=== PATIENT | male | born 1950 | race Caucasian/White ===

== ENCOUNTER 2021-09-05 16:41 | Inpatient (IN) | payer MEDICARE, OTHER ==
[~2021-09-05] VITALS: Ht 182.9 cm; Wt 85.7 kg
[2021-09-05 19:04] LABS: BASOPHILS % (AUTO) 0.2 % (0.0-2.0); EOSINOPHILS % (AUTO) 0.1 % (0.0-6.0); HEMATOCRIT 35 % (39-51); HEMOGLOBIN 11.7 g/dL (13.5-17.5); LYMPHOCYTES # (AUTO) 0.3 K/uL (0.8-4.8); LYMPHOCYTES % (AUTO) 5.5 % (20.0-44.0); MEAN CORPUSCULAR HGB CONC 33 g/dl (31.0-36.0); MEAN CORPUSCULAR VOLUME 98 fL (80-96); MONOCYTES # (AUTO) 0.5 K/uL (0.1-1.30); MONOCYTES % (AUTO) 8.8 % (2.0-12.0); NEUTROPHILS % (AUTO) 85.4 % (43.0-81.0); PLATELET COUNT (AUTO) 179 K/uL (150-450); RED BLOOD CELL COUNT(AUTO) 3.57 MIL/uL (4.5-6.0); WHITE BLOOD COUNT (AUTO) 5.9 K/uL (4.3-11.0)
[2021-09-05 19:22] LABS: CALCIUM, SERUM 9.2 mg/dL (8.5-10.1); CARBON DIOXIDE 36 mmol/L (21-32); CHLORIDE 94 mmol/L (98-107); CREATININE 5.8 mg/dL (0.6-1.3); GLUCOSE 122 mg/dL (74-106); POTASSIUM 4.3 mmol/L (3.5-5.1); SODIUM SERUM 136 mmol/L (136-145); UREA NITROGEN, BLOOD 36 mg/dL (7-18)
[2021-09-05 19:37] LABS: ALANINE AMINOTRANSFERASE 26 U/L (12-78); ALBUMIN 3.3 g/dL (3.4-5.0); ALKALINE PHOSPHATASE 68 U/L (46-116); ASPARTATE AMINOTRANSFERASE 27 U/L (15-37); BILIRUBIN,DIRECT 0.1 mg/dL (0.0-0.2); BILIRUBIN,TOTAL 0.4 mg/dL (0.2-1.0); TOTAL PROTEIN, SERUM 7.4 g/dL (6.4-8.2)
[2021-09-05] MEDS ORDERED: ASPIRIN 325 MG TABLET PO ONE (21:30)
[2021-09-05] MEDS ORDERED: IV NS 0.9% 250 ML BAG IV ONE (21:30)
[2021-09-05] MEDS ORDERED: CEFTRIAXONE 1 G in IV D5W 50 ML IV ONE (21:30)
[2021-09-05] MEDS ORDERED: ACETAMINOPHEN 325 MG TABLET PO ONE (21:30)
[2021-09-05] MEDS ORDERED: VANCOMYCIN HCL 1.25 GM in IV D5W 260 ML IV ONE (21:30)
[2021-09-05] MEDS ORDERED: CEFTRIAXONE 1GM BAG (ER ONLY) 50 ML IV ONE (22:10)
[2021-09-05] MEDS ORDERED: ACETAMINOPHEN 325 MG TABLET ONE (22:13)
[2021-09-05] MEDS ORDERED: ASPIRIN 325 MG TABLET ONE (22:13)
[2021-09-05] MEDS ORDERED: VANCOMYCIN 1 GM VIAL ONE (22:32)
[2021-09-05] MEDS ORDERED: VANCOMYCIN 500 MG VIAL ONE (22:34)
[2021-09-05] MEDS ORDERED: ONDANSETRON HCL/PF 4 MG/2 ML VIAL IVP PRN (23:00)
[2021-09-05] MEDS ORDERED: ACETAMINOPHEN 325 MG TABLET PO PRN (23:00)
[2021-09-05] MEDS ORDERED: Z GUARD REMEDY 2 OZ OINT TP PRN (23:00)
[2021-09-06 02:43] LABS: BILIRUBIN,URINE NEGATIVE (NEGATIVE); COLOR,URINE YELLOW (YELLOW); LEUKOCYTE ESTERASE ,URINE NEGATIVE (NEGATIVE); NITRITE, URINE NEGATIVE (NEGATIVE); PH,URINE 8.5 (5.0-8.0); PROTEIN,URINE 30 mg/dl (NEGATIVE); UGLUCOSE 250 MG/DL mg/dL (NEGATIVE); UROBILINOGEN,URINE 0.2 EU/dL (0.2)
[2021-09-06] MEDS ORDERED: ZOSYN IVPB 3.375 G in IV D5W 50ml IV ONE (05:00)
[2021-09-06 05:27] LABS: BASOPHILS % (AUTO) 0.8 % (0.0-2.0); EOSINOPHILS % (AUTO) 1.2 % (0.0-6.0); HEMATOCRIT 31 % (39-51); HEMOGLOBIN 10.6 g/dL (13.5-17.5); LYMPHOCYTES # (AUTO) 0.7 K/uL (0.8-4.8); LYMPHOCYTES % (AUTO) 18.5 % (20.0-44.0); MEAN CORPUSCULAR HGB CONC 34 g/dl (31.0-36.0); MEAN CORPUSCULAR VOLUME 99 fL (80-96); MONOCYTES # (AUTO) 0.3 K/uL (0.1-1.30); MONOCYTES % (AUTO) 8.9 % (2.0-12.0); NEUTROPHILS # (AUTO) 2.5 K/uL (1.8-8.9); NEUTROPHILS % (AUTO) 70.6 % (43.0-81.0); PLATELET COUNT (AUTO) 142 K/uL (150-450); RED BLOOD CELL COUNT(AUTO) 3.17 MIL/uL (4.5-6.0); WHITE BLOOD COUNT (AUTO) 3.5 K/uL (4.3-11.0)
[2021-09-06 05:33] LABS: ALANINE AMINOTRANSFERASE 19 U/L (12-78); ALKALINE PHOSPHATASE 63 U/L (46-116); ASPARTATE AMINOTRANSFERASE 25 U/L (15-37); BILIRUBIN,TOTAL 0.4 mg/dL (0.2-1.0); CARBON DIOXIDE 34 mmol/L (21-32); CHLORIDE 95 mmol/L (98-107); CREATININE 6.9 mg/dL (0.6-1.3); GLUCOSE 100 mg/dL (74-106); MAGNESIUM 2.3 mg/dL (1.8-2.4); POTASSIUM 4.4 mmol/L (3.5-5.1); SODIUM SERUM 136 mmol/L (136-145); TOTAL PROTEIN, SERUM 6.7 g/dL (6.4-8.2); UREA NITROGEN, BLOOD 47 mg/dL (7-18)
[2021-09-06] MEDS ORDERED: PIPERACILLIN /TAZOBACTAM 3.375 G VIAL IV ONE (05:41)
[2021-09-06 05:53] LABS: CHOLESTEROL 181 mg/dL (<200); HDL CHOLESTEROL 49 mg/dL (40-60); LDL 98 mg/dL (0-99); TRIGLYCERIDES 103 mg/dL (30-150)
[2021-09-06] MEDS ORDERED: VANCOMYCIN 500 MG in IV D5W 100 ML IV PRN (07:00)
[2021-09-06] MEDS ORDERED: EPOE1VIA6 SQ (08:15)
[2021-09-06] MEDS ORDERED: FINA5TAB11 PO (08:15)
[2021-09-06] MEDS ORDERED: CARV3.12 PO (08:15)
[2021-09-06] MEDS ORDERED: ACET-868 PO (08:15)
[2021-09-06] MEDS ORDERED: TAMS-12 PO (08:15)
[2021-09-06] MEDS ORDERED: CALC667C6 PO (08:15)
[2021-09-06] MEDS ORDERED: AMLO-212 PO (08:15)
[2021-09-06] MEDS ORDERED: DOCU-141 PO (08:15)
[2021-09-06] MEDS ORDERED: FOLI0.8T23 PO (08:15)
[2021-09-06] MEDS ORDERED: NITR0.4T48 SL (08:15)
[2021-09-06] MEDS ORDERED: ASPI-1169 PO (08:15)
[2021-09-06] MEDS ORDERED: GABA-532 PO (08:15)
[2021-09-06] MEDS ORDERED: AMIO200T5 PO (08:15)
[2021-09-06] MEDS ORDERED: ASPIRIN EC 325 MG TABLET.DR PO SCH (09:00)
[2021-09-06] MEDS ORDERED: ASPIRIN EC 325 MG TABLET.DR PO ONE (09:11)
[2021-09-06] MEDS: PIPERACILLIN /TAZOBACTAM 2.25 G in IV D5W 50 ML IV SCH ×3 (12:07→23:03)
[2021-09-06] MEDS: ASPIRIN 81 MG TAB.CHEW PO SCH (16:57)
[2021-09-06] MEDS ORDERED: AMIODARONE HCL 200 MG TABLET ONE (16:59)
[2021-09-06] MEDS: AMIODARONE HCL 200 MG TABLET PO SCH (17:00)
[2021-09-06] MEDS ORDERED: CARVEDILOL 3.125 MG TABLET ONE (17:49)
[2021-09-06] MEDS ORDERED: AMLODIPINE BESYLATE 5 MG TABLET ONE (17:49)
[2021-09-06] MEDS: AMLODIPINE BESYLATE 5 MG TABLET PO SCH (17:50)
[2021-09-06] MEDS: CARVEDILOL 3.125 MG TABLET PO SCH (17:50)
[2021-09-06] MEDS ORDERED: HEPARIN INFUSION/D5W 500 ML IV ONE (18:05)
[2021-09-06] MEDS: HEPARIN INFUSION/D5W 500 ML IV PRN (18:06)
[2021-09-06 20:00] VITALS: BP 144/78
[2021-09-07] VITALS: BP 114/48
[2021-09-07] MEDS ORDERED: HEPARIN SODIUM, PORCINE 5000 UNITS/1 ML VIAL IV ONE (02:00)
[2021-09-07 05:00] VITALS: BP 136/67
[2021-09-07] MEDS: PIPERACILLIN /TAZOBACTAM 2.25 G in IV D5W 50 ML IV SCH ×4 (05:45→23:56)
[2021-09-07 06:31] LABS: EOSINOPHILS % (AUTO) 7.8 % (0.0-6.0); HEMATOCRIT 30 % (39-51); HEMOGLOBIN 10.1 g/dL (13.5-17.5); LYMPHOCYTES # (AUTO) 0.8 K/uL (0.8-4.8); MEAN CORPUSCULAR HGB CONC 34 g/dl (31.0-36.0); MEAN CORPUSCULAR VOLUME 99 fL (80-96); MONOCYTES # (AUTO) 0.5 K/uL (0.1-1.30); MONOCYTES % (AUTO) 13.7 % (2.0-12.0); NEUTROPHILS # (AUTO) 2.2 K/uL (1.8-8.9); NEUTROPHILS % (AUTO) 56.5 % (43.0-81.0); PLATELET COUNT (AUTO) 138 K/uL (150-450); RED BLOOD CELL COUNT(AUTO) 3.01 MIL/uL (4.5-6.0); WHITE BLOOD COUNT (AUTO) 3.9 K/uL (4.3-11.0)
[2021-09-07 06:46] LABS: ALANINE AMINOTRANSFERASE 29 U/L (12-78); ALBUMIN 2.8 g/dL (3.4-5.0); ALKALINE PHOSPHATASE 54 U/L (46-116); ASPARTATE AMINOTRANSFERASE 27 U/L (15-37); BILIRUBIN,TOTAL 0.4 mg/dL (0.2-1.0); CALCIUM, SERUM 8.4 mg/dL (8.5-10.1); CARBON DIOXIDE 31 mmol/L (21-32); CHLORIDE 94 mmol/L (98-107); GLUCOSE 96 mg/dL (74-106); MAGNESIUM 2.5 mg/dL (1.8-2.4); PHOSPHORUS 5.6 mg/dL (2.5-4.9); POTASSIUM 4.6 mmol/L (3.5-5.1); SODIUM SERUM 136 mmol/L (136-145); TOTAL PROTEIN, SERUM 6.3 g/dL (6.4-8.2); UREA NITROGEN, BLOOD 65 mg/dL (7-18)
[2021-09-07 06:52] LABS: CREATININE 9.3 mg/dL (0.6-1.3)
[2021-09-07 08:00] VITALS: BP 125/58
[2021-09-07] MEDS: CARVEDILOL 3.125 MG TABLET PO SCH (08:57)
[2021-09-07] MEDS: AMIODARONE HCL 200 MG TABLET PO SCH (08:57)
[2021-09-07] MEDS: ASPIRIN 81 MG TAB.CHEW PO SCH (08:58)
[2021-09-07] MEDS: AMLODIPINE BESYLATE 5 MG TABLET PO SCH (08:58)
[2021-09-07 12:00] VITALS: BP 132/59
[2021-09-07] MEDS: METOPROLOL TARTRATE 50 MG TABLET PO SCH ×4 (12:02→23:59)
[2021-09-07] MEDS: HEPARIN INFUSION/D5W 500 ML IV PRN (13:22)
[2021-09-07 16:00] VITALS: BP 109/52
[2021-09-07 20:00] VITALS: BP 137/69
[2021-09-08] VITALS: BP 125/67
[2021-09-08 04:00] VITALS: BP 134/73
[2021-09-08] MEDS: PIPERACILLIN /TAZOBACTAM 2.25 G in IV D5W 50 ML IV SCH ×2 (05:24→12:29)
[2021-09-08] MEDS: METOPROLOL TARTRATE 50 MG TABLET PO SCH ×3 (05:25→18:00)
[2021-09-08 06:51] LABS: BASOPHILS % (AUTO) 0.3 % (0.0-2.0); EOSINOPHILS % (AUTO) 8.6 % (0.0-6.0); HEMATOCRIT 29 % (39-51); LYMPHOCYTES # (AUTO) 1.4 K/uL (0.8-4.8); MEAN CORPUSCULAR HGB CONC 35 g/dl (31.0-36.0); MEAN CORPUSCULAR VOLUME 97 fL (80-96); MONOCYTES # (AUTO) 0.6 K/uL (0.1-1.30); MONOCYTES % (AUTO) 12.2 % (2.0-12.0); NEUTROPHILS # (AUTO) 2.6 K/uL (1.8-8.9); NEUTROPHILS % (AUTO) 51.9 % (43.0-81.0); PLATELET COUNT (AUTO) 146 K/uL (150-450); RED BLOOD CELL COUNT(AUTO) 2.95 MIL/uL (4.5-6.0)
[2021-09-08 07:41] LABS: ALANINE AMINOTRANSFERASE 24 U/L (12-78); ALBUMIN 2.8 g/dL (3.4-5.0); ALKALINE PHOSPHATASE 50 U/L (46-116); ASPARTATE AMINOTRANSFERASE 24 U/L (15-37); BILIRUBIN,TOTAL 0.4 mg/dL (0.2-1.0); CALCIUM, SERUM 8.2 mg/dL (8.5-10.1); CARBON DIOXIDE 30 mmol/L (21-32); CHLORIDE 93 mmol/L (98-107); GLUCOSE 97 mg/dL (74-106); MAGNESIUM 2.6 mg/dL (1.8-2.4); PHOSPHORUS 6.9 mg/dL (2.5-4.9); POTASSIUM 4.9 mmol/L (3.5-5.1); SODIUM SERUM 135 mmol/L (136-145); TOTAL PROTEIN, SERUM 6.5 g/dL (6.4-8.2); UREA NITROGEN, BLOOD 76 mg/dL (7-18)
[2021-09-08 07:44] LABS: CREATININE 11.2 mg/dL (0.6-1.3)
[2021-09-08 08:00] VITALS: BP 124/61
[2021-09-08] MEDS ORDERED: NEPRO VAN 237 ML CAN PO PRN (09:00)
[2021-09-08] MEDS: AMIODARONE HCL 200 MG TABLET PO SCH (09:50)
[2021-09-08] MEDS: ASPIRIN 81 MG TAB.CHEW PO SCH (09:50)
[2021-09-08] MEDS: AMLODIPINE BESYLATE 5 MG TABLET PO SCH (09:50)
[2021-09-08 12:00] VITALS: BP 129/66
[2021-09-08 16:00] VITALS: BP 137/57
[2021-09-08] MEDS ORDERED: IV NS 0.9% 250 ML IV ONE (16:38)
[2021-09-08] MEDS ORDERED: IOHEXOL-350 100 ML VIAL IV ONE (16:38)
[2021-09-08] MEDS ORDERED: NITROGLYCERIN 0.4 MG/TAB BOTTLE ONE (17:07)
[2021-09-08] MEDS ORDERED: NITROGLYCERIN 0.4 MG/TAB BOTTLE SL ONE (17:30)
[2021-09-08] MEDS ORDERED: METOPROLOL TARTRATE INJ 5 MG/5 ML AMPUL IVP PRN (17:30)
[2021-09-08 20:00] VITALS: BP 127/62
[2021-09-09] VITALS (7 sets, daily range): BP systolic 144–157; BP diastolic 56–85
[2021-09-09] MEDS: METOPROLOL TARTRATE 50 MG TABLET PO SCH ×5 (00:24→23:58)
[2021-09-09] MEDS: AMLODIPINE BESYLATE 5 MG TABLET PO SCH (08:38)
[2021-09-09] MEDS: ASPIRIN 81 MG TAB.CHEW PO SCH (08:38)
[2021-09-09] MEDS: SEVELAMER CARBONATE 800 MG TABLET PO SCH ×3 (08:38→17:29)
[2021-09-09] MEDS: AMIODARONE HCL 200 MG TABLET PO SCH (08:39)
[2021-09-10] VITALS (8 sets, daily range): BP systolic 124–149; BP diastolic 49–68
[2021-09-10] MEDS: METOPROLOL TARTRATE 50 MG TABLET PO SCH ×3 (05:12→17:27)
[2021-09-10 07:00] LABS: BASOPHILS % (AUTO) 0.7 % (0.0-2.0); EOSINOPHILS % (AUTO) 5.8 % (0.0-6.0); HEMATOCRIT 29 % (39-51); LYMPHOCYTES # (AUTO) 1.6 K/uL (0.8-4.8); LYMPHOCYTES % (AUTO) 26.3 % (20.0-44.0); MEAN CORPUSCULAR HGB CONC 34 g/dl (31.0-36.0); MEAN CORPUSCULAR VOLUME 98 fL (80-96); MONOCYTES # (AUTO) 0.8 K/uL (0.1-1.30); MONOCYTES % (AUTO) 13.1 % (2.0-12.0); NEUTROPHILS # (AUTO) 3.3 K/uL (1.8-8.9); NEUTROPHILS % (AUTO) 54.1 % (43.0-81.0); PLATELET COUNT (AUTO) 168 K/uL (150-450); RED BLOOD CELL COUNT(AUTO) 2.96 MIL/uL (4.5-6.0); WHITE BLOOD COUNT (AUTO) 6.2 K/uL (4.3-11.0)
[2021-09-10 07:36] LABS: CALCIUM, SERUM 8.2 mg/dL (8.5-10.1); CARBON DIOXIDE 24 mmol/L (21-32); CHLORIDE 98 mmol/L (98-107); GLUCOSE 95 mg/dL (74-106); MAGNESIUM 2.6 mg/dL (1.8-2.4); PHOSPHORUS 7.9 mg/dL (2.5-4.9); POTASSIUM 4.5 mmol/L (3.5-5.1); SODIUM SERUM 140 mmol/L (136-145); UREA NITROGEN, BLOOD 77 mg/dL (7-18)
[2021-09-10 07:43] LABS: CREATININE 11.3 mg/dL (0.6-1.3)
[2021-09-10] MEDS: SEVELAMER CARBONATE 800 MG TABLET PO SCH ×3 (08:40→17:27)
[2021-09-10] MEDS: ASPIRIN 81 MG TAB.CHEW PO SCH (08:40)
[2021-09-10] MEDS: AMIODARONE HCL 200 MG TABLET PO SCH (08:41)
[2021-09-10] MEDS: AMLODIPINE BESYLATE 5 MG TABLET PO SCH (08:41)
[2021-09-10] MEDS ORDERED: LIDOCAINE HCL/PF 1% 30 ML SDV ONE (12:51)
[2021-09-10] MEDS ORDERED: IV NS 0.9% 1,000 ML ONE (12:51)
[2021-09-10] MEDS ORDERED: NITROGLYCERIN IN 5 % DEXTROSE 250 ML IV ONE (12:51)
[2021-09-10] MEDS ORDERED: IV SET PRIMARY PUMP SET 1 EA INFUS.SET MC ONE (12:51)
[2021-09-10] MEDS ORDERED: IODIXANOL 150 ML IV ONE (12:51)
[2021-09-10] MEDS ORDERED: FENTANYL PF 100MCG/2ML AMPUL ONE (13:57)
[2021-09-10] MEDS ORDERED: MIDAZOLAM HCL 2 MG/2ML VIAL ONE (13:57)
== END 2021-09-10 21:00 | DRG 280 ==
LOC: ER 16:53 → TRANSITION 09-06 04:32 → ICU 09-06 17:04 → TELE1 09-06 18:16 → TELE 09-09 21:06
PROVIDERS: ADMIT Hospitalist; ATTEND Student in an Organized Health Care Education/Training Program
PROC: 5A1D70Z Performance of Urinary Filtration, Intermittent, Less than 6 Hours Per Day (ICD-10-PCS; 2021-09-08)
PROC: 4A023N7 Measurement of Cardiac Sampling and Pressure, Left Heart, Percutaneous Approach (ICD-10-PCS; principal; 2021-09-10)
PROC: B211YZZ Fluoroscopy of Multiple Coronary Arteries using Other Contrast (ICD-10-PCS; 2021-09-10)
DX: I25.110 Atherosclerotic heart disease of native coronary artery with unstable angina pectoris (principal); I21.4 Non-ST elevation (NSTEMI) myocardial infarction; N18.6 End stage renal disease; G93.41 Metabolic encephalopathy; R65.11 Systemic inflammatory response syndrome (SIRS) of non-infectious origin with acute organ dysfunction; E44.1 Mild protein-calorie malnutrition; I13.2 Hypertensive heart and chronic kidney disease with heart failure and with stage 5 chronic kidney disease, or end stage renal disease; I48.92 Unspecified atrial flutter; D61.818 Other pancytopenia; N40.0 Benign prostatic hyperplasia without lower urinary tract symptoms; Z86.16 Personal history of COVID-19; Z99.2 Dependence on renal dialysis; Z79.82 Long term (current) use of aspirin; E66.01 Morbid (severe) obesity due to excess calories; D63.1 Anemia in chronic kidney disease; I50.9 Heart failure, unspecified; E88.09 Other disorders of plasma-protein metabolism, not elsewhere classified; Z68.25 Body mass index [BMI] 25.0-25.9, adult; T50.B95A Adverse effect of other viral vaccines, initial encounter; Y92.129 Unspecified place in nursing home as the place of occurrence of the external cause; I51.4 Myocarditis, unspecified; E83.9 Disorder of mineral metabolism, unspecified; Z20.822 Contact with and (suspected) exposure to COVID-19
CPT/HCPCS: 36415; 71045-TC; 75574; 80048-TC; 80053-TC; 80061-TC; 80076-TC; 80202-TC; 83605-TC; 83735-TC; 84100-TC; 84484-TC; 85025-TC; 85610-TC; 85730-TC; 86706; 87040-TC; 87081-TC; 87340; 90935-TC; 93307-TC; C1887; C9803; G0378; G0500; J0696; J1644; J2250; J2405; J2543; J3010; J3370; J3490; J7030; J7050; J7060; Q9967; U0003